=== PATIENT | female | born 1980 | race Two or more races ===

== ENCOUNTER 2020-06-06 18:49 | Emergency (ER) | payer SELFPAY ==
[~2020-06-06] VITALS: Ht 162.6 cm; Wt 48.0 kg
[2020-06-06 18:51] VITALS: BP 130/80
== END 2020-06-06 20:34 | disposition left against medical advice (07) ==
LOC: ER 18:49
DX: F41.9 Anxiety disorder, unspecified (principal); R06.00 Dyspnea, unspecified
CPT/HCPCS: 99281; 99283